=== PATIENT | female | born 1965 | race Caucasian/White ===

== ENCOUNTER 2022-05-24 17:05 | Emergency (ER) | payer OTHER, SELFPAY ==
[2022-05-24 17:14] VITALS: BP 108/65; PULSE 64; RESP 16; TEMP 37.1; O2SAT 100; BMI 28.7
--- NOTE | 2022-05-24 17:44 | ED_ITS ---
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 Did break skin through the clothing. Child reported that the dog is up-to-date on rabies immunizations patient states she is not up-to-date on her tetanus. complaint: animal bite Onset (ago): minute(s) Animal: dog Description of animal: household pet Mechanism: bite Location - Extremities: Right: thigh Associated symptoms: Deny bleeding, chills, cough, diaphoresis, erythema, fever(s), headache(s), numbness, rash, short of breath, syncope, weakness or wound drainage Review of Systems Const: Denies: fever(s), chills, fatigue, malaise or diaphoresis ENMT: Denies: throat pain, ear or mastoid pain, nasal discharge or nasal congestion Card: Denies: chest pain or syncope Resp: Denies: dyspnea, productive cough or non-productive cough GI: Denies: abdominal pain, nausea, vomiting, hematemesis, coffee ground emesis, diarrhea, constipation, bloating, hematochezia or melena : Denies: flank pain, difficulty voiding, dysuria, urinary frequency or urinary urgency Skin/Breast: Denies: rash or pruritus Neuro: Denies: headache(s) Physical Exam Const: COMMON NORMALS: no acute distress GENERAL APPEARANCE: cooperative and comfortable ORIENTATION/CONSCIOUSNESS: Yes awake, Yes oriented to person, Yes oriented to place and Yes oriented to time HENMT: COMMON NORMALS: normocephalic, atraumatic and hearing grossly normal bilaterally HEAD & SCALP: normocephalic and atraumatic Resp: COMMON NORMALS: normal respiratory effort, No retractions, No use of accessory muscles and clear to auscultation bilaterally AUSCULTATION: clear to auscultation bilaterally Cardio: COMMON NORMALS: regular rate, regular rhythm and No murmurs present (Cardio) RATE: regular rate RHYTHM: regular rhythm GI: COMMON NORMALS: Soft to palpation and No hepatosplenomegaly present AUSCULTATION: Yes normoactive bowel sounds PALPATION: Yes Soft to palpation, No Tenderness to palpation present (GI), No Guarding due to palpation present (GI) and Yes No hepatosplenomegaly present Extremity: COMMON NORMALS: normal to inspection, capillary refill normal, no clubbing, cyanosis or edema, no calf tenderness and no pedal edema Neuro: SENSORIUM/ORIENTATION: Yes oriented to person, Yes oriented to place and Yes oriented to time Skin: GENERAL SKIN EXAM: no erythema OTHER: Skin abrasion with no puncture denisse on the right lateral anterior thigh Course Vital Signs: Vital signs: Vital Signs Temperature 97.8 F 05/24/22 18:07 Pulse Rate 70 05/24/22 18:07 Respiratory Rate 16 05/24/22 18:07 Blood Pressure 106/73 05/24/22 18:07 Pulse Oximetry 100 05/24/22 18:07 Oxygen Delivery Me thod 05/24/22 17:14 MDM - Animal Bite Medical Decision Making Initiate rabies vaccination topical antibiotics wound care instructions given complete full course of postexposure rabies prophylaxis Medical Records I reviewed the patient's medical records. Lab Data I reviewed the patient's lab results. Discharge Plan Discharge Patient Disposition: Home Clinical Impression: Dog bite Condition: Stable Prescriptions: New amoxicillin-pot clavulanate 875-125 mg tablet 1 tab PO BID Qty: 6 0RF Discharge Orders: Discharge ED (Routine); Ordered 05/24/22 Ordered By: Vasile Thomas Patient Instructions: Opioid Safety, Pain Management Activity Restrictions/Additional Instructions: Your evaluated emergency room for dog bite. Recommend that you follow-up with the police to confirm that the dog involved did have rabies vaccinations. If they cannot confirm this you are strongly encouraged to have the rabies prophylaxis treatments. You may return at any time to have the rabies prophylaxis treatment initiated. Coding Level of Care Code ED Rn Post Partum for Sangeetha Castillo
--- NOTE | 2022-05-24 17:46 | PC.NURSE ---
[facility] office called sending deputy
[2022-05-24] MEDS: tetanus-dipt-pertussis 0.5 mL SDV IM (17:54)
[2022-05-24 18:07] VITALS: BP 106/73; PULSE 70; RESP 16; TEMP 36.6; O2SAT 100
== END 2022-05-24 19:02 | disposition home or self-care (01) ==
PROVIDERS: Emergency Provider Family Medicine
DX: S71.151A Open bite, right thigh, initial encounter (principal); W54.0XXA Bitten by dog, initial encounter; Z23 Encounter for immunization
CPT/HCPCS: 90471; 90715; 99283